=== PATIENT | male | born 1995 | race Caucasian/White ===

== ENCOUNTER 2019-10-05 18:34 | Emergency (ER) | payer OTHER ==
[~2019-10-05] VITALS: Ht 177.8 cm; Wt 79.0 kg
[2019-10-05] MEDS ORDERED: LIDOCAINE-MPF 1%, 5ML ONE ×2 (18:45→19:06)
[2019-10-05] MEDS ORDERED: LIDOCAINE-MPF 1%, 5ML INFIL ONE (19:00)
[2019-10-05] MEDS ORDERED: PLEASE ENTER ALLERGIES MC SCH (19:00)
[2019-10-05] MEDS ORDERED: PLEASE ENTER HEIGHT AND WEIGHT MC SCH (19:00)
[2019-10-05] MEDS ORDERED: BUPIVACAINE 0.25% ONE (19:28)
[2019-10-05] MEDS ORDERED: BUPIVACAINE 0.25% INFIL ONE (19:30)
[2019-10-05] MEDS ORDERED: ONDANSETRON ODT 4 MG ONE (19:57)
[2019-10-05] MEDS ORDERED: ONDANSETRON ODT 4 MG PO ONE (20:00)
[2019-10-05] MEDS ORDERED: HYDROmorphone 2 MG/ML, 1ML ONE (20:23)
[2019-10-05] MEDS ORDERED: HYDROmorphone 1 MG/ML, 1ML INJ IM ONE (20:30)
[2019-10-05] MEDS ORDERED: NEOSPORIN OINT. PKT 1 PACKET ONE (21:24)
[2019-10-05 21:35] VITALS: BP 119/72
== END 2019-10-05 21:38 | disposition home or self-care (01) ==
LOC: ED 19:43
DX: S61.317A Laceration without foreign body of left little finger with damage to nail, initial encounter (principal); Z72.89 Other problems related to lifestyle; X58.XXXA Exposure to other specified factors, initial encounter; Y93.89 Activity, other specified; Y92.39 Other specified sports and athletic area as the place of occurrence of the external cause; Y99.8 Other external cause status
CPT/HCPCS: 11760; 73140; 96372; 99284; J1170; Q0162

== ENCOUNTER 2020-08-09 09:15 | Emergency (ER) | payer OTHER ==
[~2020-08-09] VITALS: Ht 180.3 cm; Wt 76.6 kg
[2020-08-09 09:17] VITALS: BP 119/75
== END 2020-08-09 10:28 | disposition home or self-care (01) ==
LOC: ED 10:15
DX: U07.1 COVID-19 (principal); B34.9 Viral infection, unspecified; J02.9 Acute pharyngitis, unspecified; Z88.0 Allergy status to penicillin
CPT/HCPCS: 87635; 99283